=== PATIENT | male | born 1975 | race Caucasian/White ===

== ENCOUNTER 2016-08-16 14:30 | Day surgery (SDC) | payer BC ==
[~2016-08-16] VITALS: Ht 190.5 cm; Wt 47.6 kg
[~2016-08-16 14:30] MED LIST: ACET-62 PO; IBUP-1724 PO; PROP120C2 PO; RISP1TAB27 PO; RIVA15TA PO
--- OUTSIDE RECORDS SUMMARY | 2016-08-16 14:35 | XMS REPORT | Continuity of Care Document ---
Author Author [facility] Organization [facility] Address Unknown Phone Unavailable Support Name Relationship Address Phone BRANDAN MCKEON INSPECTOR OUTSIDE PRODUCTION Caregiver [address] [place] [address] Unavailable BRANDAN MCKEON INSPECTOR OUTSIDE PRODUCTION Caregiver [address] [place] [address] Unavailable HESHAM HUNT Next Of Kin [address] [place] [address] Insurance Providers Guarantor Basilio Hunt Address [address] [place] [address] Email DENIED 16 Payer [facility] Policy Number [id number] Subscriber's Name Basilio Hunt Relationship 18 Self Group Number [id number] Problems Past Problems Medical Problem Onset Date Acute superficial venous thrombosis of right lower extremity Unknown DVT (deep venous thrombosis) Unknown DVT (deep venous thrombosis) Unknown Deep vein thrombosis (DVT) of right lower extremity Unknown Dyspnea Unknown Nonspecific chest pain Unknown Shortness of breath Unknown Medications Current Home Medications Medication Dose Units Route Directions Days Qty Instructions Start Date Acetaminophen 500 Mg Tablet 1,000 Mg Oral Every 8 Hours as needed for Pain 05/30/16 Ibuprofen 200 Mg Tablet 400 Mg Oral Every 4 Hours as needed for Pain 04/13/16 Propranolol Hcl 120 Mg Cap.sa.24h 120 Mg Oral Daily 05/30/16 Risperidone 1 Mg Tablet 1 Mg Oral Daily 05/30/16 Rivaroxaban (Xarelto) 15 Mg Tablet 15 Mg Oral Twice Daily With Meals 21 Days 42 Tablet Take 1 tablet, by mouth, 2 times a day with meals. 05/29/16 Past Home Medications Medication Directions Ordered Status Amitriptyline , 05/10/08 Discontinued Hydrocodone Bit/Acetaminophen (Lortab 7.5-500 Tablet) 1 Tab Tablet, 1 Tab Oral As Needed 03/23/08 Discontinued Social History Social History Problem Response Recorded Date/Time Onset Date Status Hx Substance Use No 05/30/2016 7:50pm Not Applicable Not Applicable Hx Alcohol Use No 05/30/2016 7:50pm Not Applicable Not Applicable Hospital Discharge Instructions Current inpatient/outpatient. Discharge instructions are currently unavailable. Plan of Care Current inpatient/outpatient. The plan of care is currently unavailable Functional Status No functional status results. Allergies, Adverse Reactions, Alerts Allergen Type Severity Reaction Status Last Updated Iodinated Contrast Media - Oral and Allergy Mild ITCH, RASH Active Immunizations Query Response on File Recorded Date/Time Hx Tetanus, Diptheria, Pertussis Yes 09/13/10 12:22am Hx Tetanus Diptheria No 05/30/16 7:50pm Hx Tetanus, Diptheria, Pertussis Yes 09/13/10 12:22am Hx Tetanus Toxoid Vaccination No 05/30/16 7:50pm DTaP Vaccine History UNK 05/30/16 7:50pm Influenza Vaccine Hx NOT REC'D 05/30/16 7:50pm Tdap Vaccine Hx UTD PER PT 05/30/16 7:50pm Vital Signs Acute Vital Signs Vital Response Date/Time Temperature (Fahrenheit) 98.4 deg F (96.8 - 99.1) 05/30/2016 10:28pm Temperature (Calculated Celsius) 36.90264 degrees C (36.0 - 37.3) 05/30/2016 10:28pm Pulse Rate (adult) 48 bpm (60 - 100) 05/30/2016 10:28pm Respiratory Rate 16 breaths/min (10 - 20) 05/30/2016 10:28pm O2 Sat by Pulse Oximetry 96 % (90 - 100) 05/30/2016 10:28pm Blood Pressure 129/61 mm Hg 05/30/2016 10:28pm Height (Feet) 6 feet 05/30/2016 6:56pm Height (Inches) 3.00 inches 05/30/2016 6:56pm Weight (Kilograms) 103.600 kg 05/30/2016 6:56pm Body Mass Index (BMI) 28.0 05/30/2016 6:56pm Results Laboratory Results Test Name Result Units Flags Reference Collection Date/Time Result Date/ Time Comments White Blood Count 10.2 T/MM3 4.5-11.0 05/30/2016 7:45pm 05/30/2016 7: 56pm Red Blood Count 5.06 M/MM3 4.50-5.90 05/30/2016 7:45pm 05/30/2016 7: 56pm Hemoglobin 15.4 GM/DL 13.5-17.5 05/30/2016 7:45pm 05/30/2016 7:56pm Hematocrit 45.9 % 41-53 05/30/2016 7:45pm 05/30/2016 7:56pm Mean Corpuscular Volume 90.7 UM3 80-100 05/30/2016 7:45pm 05/30/2016 7: 56pm Mean Corpuscular Hemoglobin 30.4 UUG 26-34 05/30/2016 7:45pm 2016 7:56pm Mean Corpuscular Hemoglobin Concent 33.6 GM/DL 31-37 05/30/2016 7:45pm 05/30/2016 7:56pm RDW Standard Deviation 41.6 FL 36.9-50.2 05/30/2016 7:45pm 05/30/2016 7 :56pm Platelet Count 174 T/MM3 130-400 05/30/2016 7:45pm 05/30/2016 7:56pm Mean Platelet Volume 11.1 UM3 9.4-12.4 05/30/2016 7:45pm 05/30/2016 7: 56pm Neutrophils (%) (Auto) 55.8 % 33-66 05/30/2016 7:45pm 05/30/2016 7: 56pm Lymphocytes (%) (Auto) 34.3 % 23-45 05/30/2016 7:45pm 05/30/2016 7: 56pm Monocytes (%) (Auto) 5.6 % 0-9.0 05/30/2016 7:45pm 05/30/2016 7:56pm Eosinophils (%) (Auto) 3.8 % 0-4 05/30/2016 7:45pm 05/30/2016 7:56pm Basophils (%) (Auto) 0.4 % 0-2 05/30/2016 7:45pm 05/30/2016 7:56pm Immature Granulocyte % (Auto) 0.1 % 0.0-0.5 05/30/2016 7:45pm 2016 7:56pm Absolute Neutrophils (auto) 5.7 T/MM3 1.8-7.7 05/30/2016 7:45pm 2016 7:56pm Absolute Lymphocytes (auto) 3.5 T/MM3 1-4.8 05/30/2016 7:45pm 2016 7:56pm Absolute Monocytes (auto) 0.6 T/MM3 0-0.8 05/30/2016 7:45pm 05/30/2016 7:56pm Absolute Eosinophils (auto) 0.4 T/MM3 0-0.5 05/30/2016 7:45pm 2016 7:56pm Absolute Basophils (auto) 0.0 T/MM3 0-0.2 05/30/2016 7:45pm 05/30/2016 7:56pm Absolute Immature Granulocyte (auto 0.01 T/MM3 0.00-0.03 05/30/2016 7: 45pm 05/30/2016 7:56pm Icterus Index < 2 0-7 05/30/2016 7:45pm 05/30/2016 8:06pm Chemistry Specimen Hemolysis < 15 0-25 05/30/2016 7:45pm 05/30/2016 8 :06pm 0-25: Specimen Exhibited No Hemolysis. Turbidity < 20 0-20 05/30/2016 7:45pm 05/30/2016 8:06pm Sodium Level 140 MEQ/L 134-144 05/30/2016 7:45pm 05/30/2016 8:06pm Potassium Level 4.1 MEQ/L 3.6-5 05/30/2016 7:45pm 05/30/2016 8:06pm Chloride Level 105 MEQ/L 98-107 05/30/2016 7:45pm 05/30/2016 8:06pm Carbon Dioxide Level 27 MEQ/L 22-30 05/30/2016 7:45pm 05/30/2016 8: 06pm Anion Gap 8 MEQ/L 5-15 05/30/2016 7:45pm 05/30/2016 8:06pm Blood Urea Nitrogen 9.0 MG/DL 9-05/30/2016 7:45pm 05/30/2016 8:06pm Creatinine 0.9 MG/DL 0.8-1.5 05/30/2016 7:45pm 05/30/2016 8:06pm BUN/Creatinine Ratio 10 RATIO 6-05/30/2016 7:45pm 05/30/2016 8:06pm Glomerular Filtration Rate Calc 93 05/30/2016 7:45pm 05/30/2016 8: 06pm Glucose Level 90 MG/DL 75-110 05/30/2016 7:45pm 05/30/2016 8:06pm Calculated Osmolality 268 MOSM/KG 261-280 05/30/2016 7:45pm 05/30/2016 8:06pm Calcium Level 9.2 MG/DL 8.4-10.2 05/30/2016 7:45pm 05/30/2016 8:06pm Total Bilirubin 0.70 MG/DL 0.20-1.30 05/30/2016 7:45pm 05/30/2016 8: 06pm Alkaline Phosphatase 78 U/L 38-126 05/30/2016 7:45pm 05/30/2016 8:06pm Total Protein 7.1 G/DL 6.3-8.2 05/30/2016 7:45pm 05/30/2016 8:06pm Albumin 4.0 G/DL 3.5-5.0 05/30/2016 7:45pm 05/30/2016 8:06pm Globulin 3.1 G/DL 2.4-3.6 05/30/2016 7:45pm 05/30/2016 8:06pm Albumin/Globulin Ratio 1.3 RATIO 1.1-2.2 05/30/2016 7:45pm 05/30/2016 8 :06pm Aspartate Amino Transf (AST/SGOT) 24 U/L 17-59 05/30/2016 7:45pm 2016 8:06pm Alanine Aminotransferase (ALT/SGPT) 27 U/L 21-72 05/30/2016 7:45pm 8:06pm Plasma Lactate 1.0 MMOL/L 0.6-2.2 05/30/2016 7:45pm 05/30/2016 8:04pm Procedures Procedure Status Date Provider(s) Extremity study Completed 04/13/16 Emergency dept visit Completed 04/13/16 Encounters Encounter Location Arrival/Admit Date Discharge/Depart Date Attending Provider Registered Clinic [facility] 05/31/16 6:42am BRANDAN MCKEON APRN Departed Emergency Room [facility] 05/30/16 6:46pm 05/30/16 10: 28pm CAROLE JUNE MD Departed Emergency Room [facility] 05/30/16 5:34pm 05/30/16 6: 32pm JOSR BALBUENA APRN Departed Emergency Room [facility] 05/29/16 7:15am 05/29/16 9: 40am LORRAINE SALINAS MD Departed Emergency Room [facility] 04/13/16 8:42pm 04/13/16 11: 10pm LORRAINE SALINAS MD
--- NOTE | 2016-08-16 14:40 | ERPDOC ---
Departure Disposition Decision Date: August 16, 2016 Disposition Decision Time: 16:09 Disposition: 01 DISCHARGED HOME, SELF-CARE Impression Impression Impression: Primary Impression: Chest pain, rule out acute myocardial infarction Severity: Moderate Condition: Stable Seen By: Physician only Referrals: BRANDAN MCKEON APRN (Family) Problems/Meds/Labs Reviewed?: Yes Medications reviewed and manag: Yes Follow up care ordered?: Yes Mental Status: Alert, Oriented Scripts Atorvastatin Calcium (Atorvastatin Calcium) 20 Mg Tablet 1 TAB PO HS for 30 Days, #30 TAB 2 Refills Prov: ALEXYS ALSTON MD 08/17/16 HPI - Chest Pain General Stated Complaint: CHEST PAIN Time Seen by Provider: 14:34 Source: patient, RN/MD Exam Limitations: no limitations HPI - Chest Pain Initial Comments Patient is a 40-year-old male, smoker, history of hypertension, family history of brother needing a CABG at the age of 43. Patient presents the ER for evaluation of chest pain intermittent associated with exertion over the last 3 days with radiation to his right arm. This is waxed and waned, has been as high as 9/10, today was 5/10. Patient went to his cardiology office, was given nitroglycerin aspirin there with minimal relief so patient was referred to the ER no specific EKG changes. On arrival patient is currently complaining of 5/ 10 anterior chest pain with radiation to the right arm no nausea and no diaphoresis Occurred At: home Onset/Timing: Gradual, Getting worse Duration: other (several days) Pain/Severity Scale: Now: 5/10, Worst: 10/10 Location: substernal Chest Pain Radiation: arms Nitro Today/Relief: 0.4 mg x 3, provided by EMS (provided by cardiology), mild relief Aspirin Treatment Today: 81 mg x 4, provided at home Allergies: Coded Allergies: Iodinated Contrast Media - Oral and (Verified Allergy, Mild, ITCH, RASH, ) Past History Past Medical History Metabolic: hypertension, DENIES: diabetes, hypercholesterolemia, hypothyroidism Cardiac: DENIES: CAD, CHF, angina Respiratory: DENIES: COPD, asthma Musculoskeletal: back pain, neck pain Hematologic: DVT Surgical History Denies Surgeries Cardiac: DENIES: cardiac bypass, cardiac cath, vascular bypass Family History Family PMH: FOUND: other Vaccines Hx Tetanus Diptheria: No Hx Tetanus, Diptheria, Pertuss: Yes Social History Smoking Status: Current every day smoker Substance Use Type: does not use, former substance user Alcohol Intake: none Review of Systems Constitutional Constitutional: DENIES: appetite decrease, chills, dizziness, fever, weakness ENMT Sinuses: DENIES: congestion, rhinorrhea Cardiovascular Cardiac: chest pain, DENIES: dyspnea on exertion Pulmonary Respiratory: DENIES: cough, dyspnea, pleuritic chest pain, sputum, tachypnea GI Upper Abdomen: DENIES: nausea, pain, vomiting Lower Abdomen: DENIES: constipation, diarrhea, pain General: DENIES: frequency, urgency Integumentary Skin: DENIES: color change, itching, rash Neurological General: DENIES: change in strength, headache, numbness Physical Exam General General Nourishment: well nourished, well developed General Body Habitus: well groomed Vitals and Pain First Documented Vital Signs Date Time Temp Pulse Resp B/P Pulse Ox O2 Delivery O2 Flow Rate FiO2 08/16/16 14:32 98.4 76 16 123/64 96 Room Air Weight: Kilograms: Height (feet): 6 Height (inches): 3.00 Triage Pain Scale: RN VS reviewed by Provider: Yes Eyes (brief) Eyes Brief: found: EOMI ENMT (brief) ENMT Brief: FOUND: mucosa moist, normal dentition, NOT FOUND: nasal erythema, pharnyx erythema, tonsillar deviation Neck (brief) Neck: NOT FOUND: adenopathy, spasm, tenderness Respiratory (brief) Respiratory: FOUND: clear all ball, equal bilaterally, NOT FOUND: rales, wheezes Cardiovascular (brief) Cardiac: FOUND: regular rate, regular rhythm Capillary Refill: <2 sec Abdomen (brief) Abdominal Brief: FOUND: bowel normo active x4, soft, NOT FOUND: distended, tender Lymphatic (brief) Lymphatic Brief: NOT FOUND: adenopathy Musculoskeletal (brief) Musculoskeletal Brief: NOT FOUND: spasm, tenderness Integumentary (brief) Integumentary Brief: FOUND: dry, pink, warm, NOT FOUND: rash Neurologic (brief) Neurological Brief: FOUND: CN w/o gross def to obs, motor-no gross deficits, sensory-no gross deficits Psychiatric (brief) Psychiatric Brief: FOUND: alert, oriented Differential Diagnoses Considering: Acute MA, Anxiety/Panic, Angina, Aortic Dissection, Brugada Syndrome, CHF, Costochondritis, Esophageal Spasm, GERD, Hypertensive Emergency, Hyperventilation, Pancreatitis, Pericarditis, Pleurisy, Pneumothorax, Pneumonia , Pulmonary Edema Progress Results/Orders Orders Procedure Category Date Status Time EKG EKG 08/16/16 Logged 14:31 Cbc W/Auto LAB 08/16/16 Complete Diff-Reflex Manual 14:34 Probnp LAB 08/16/16 Complete 14:34 Troponin I W LAB 08/16/16 Complete Hemolysis Index 14:34 D-Dimer LAB 08/16/16 Complete 14:34 Tsh - Thyroid Stim LAB 08/16/16 Complete Hormone 14:34 Magnesium LAB 08/16/16 Complete 14:34 Chest 1 View RAD 08/16/16 Resulted 14:34 Iv Lock (Ed Only) EDM 08/16/16 Transmitted 14:34 Nitroglycerin PHA 08/16/16 Complete (Nitrostat) 14:45 Cmp - Comprehensive LAB 08/16/16 Complete Metabolic 15:01 Place In Facility: ED ADM 08/16/16 Transmitted 16:02 Measure Vital Signs [place]IL[place] 08/16/16 In Process 16:02 Up In Room With Assist [place] 08/16/16 In Process 16:02 Clear Liquid Diet DIET 08/16/16 Transmitted Dinner Iv Lock (Nursing) [place] 08/16/16 In Process 16:02 Prn Orders (Adult) PHA 08/16/16 In Process (May Use Prn Orders) 16:15 Troponin I W LAB 08/16/16 Logged Hemolysis Index 20:40 Troponin I W LAB 08/17/16 Verified Hemolysis Index 02:40 Troponin I W LAB 08/17/16 Verified Hemolysis Index 08:40 Nitroglycerin PHA 08/16/16 In Process (Nitrostat) 16:15 Npo After Midnight [place]NA 08/16/16 In Process 16:02 Npo: Nothing By Mouth DIET 08/17/16 Transmitted Breakfast Telemetry [place] 08/16/16 In Process 16:02 Lab Results Laboratory Tests Test 08/16/16 14:43 White Blood Count 10.7T/MM3 Red Blood Count 4.97M/MM3 Hemoglobin 15.2GM/DL Hematocrit 45.6% Mean Corpuscular Volume 91.8UM3 Mean Corpuscular Hemoglobin 30.6UUG Mean Corpuscular Hemoglobin Concent 33.3GM/DL RDW Standard Deviation 45.4FL Platelet Count 188T/MM3 Mean Platelet Volume 10.4UM3 Immature Granulocyte % (Auto) 0.2% Neutrophils (%) (Auto) 60.8% Lymphocytes (%) (Auto) 29.5% Monocytes (%) (Auto) 5.7% Eosinophils (%) (Auto) 3.2% Basophils (%) (Auto) 0.6% Absolute Immature Granulocyte (auto 0.02T/MM3 Absolute Neutrophils (auto) 6.5T/MM3 Absolute Lymphocytes (auto) 3.2T/MM3 Absolute Monocytes (auto) 0.6T/MM3 Absolute Eosinophils (auto) 0.3T/MM3 Absolute Basophils (auto) 0.1T/MM3 D-Dimer 154NG/ML Turbidity < 20 Sodium Level 147MEQ/L Potassium Level 4.0MEQ/L Chloride Level 105MEQ/L Carbon Dioxide Level 29MEQ/L Anion Gap 13MEQ/L Blood Urea Nitrogen 11.0MG/DL Creatinine 1.0MG/DL Glomerular Filtration Rate Calc 83 BUN/Creatinine Ratio 11RATIO Glucose Level 85MG/DL Calculated Osmolality 280MOSM/KG Calcium Level 9.5MG/DL Magnesium Level 1.9MG/DL Total Bilirubin 0.70MG/DL Icterus Index < 2 Aspartate Amino Transf (AST/SGOT) 28U/L Alanine Aminotransferase (ALT/SGPT) 35U/L Alkaline Phosphatase 73U/L Troponin I < 0.012ng/ml [id number] Natriuretic Peptide 61PG/ML Total Protein 7.2G/DL Albumin 4.1G/DL Globulin 3.1G/DL Albumin/Globulin Ratio 1.3RATIO Thyroid Stimulating Hormone (TSH) 1.39MIU/L Chemistry Specimen Hemolysis < 15 Medications Current ED Medications Nitroglycerin (Nitrostat) 0.4 mg Q5MIN PRN SL CHEST PAIN Last administered on t 15:02; Start 08/16/16 at 14:45; Stop 08/16/16 at 15:02; Status DC Miscellaneous Medication (May use PRN orders) PRN PRN MC ; Start 08/16/16 at 16 :15 Nitroglycerin (Nitrostat) 0.4 mg Q5MIN PRN SL CHEST TIGHTNESS; Start 08/16/16 at 16:15 Progress Progress Patient repeat nitroglycerin 3 is now currently chest pain-free, laboratories are currently noncontributory did discuss case with Dr. Alston, he will admit patient observation status at this time for chest pain rule out MA EKG EKG : Rate: 60-100 Rhythm: sinus [place]: normal QRS: normal Intervals: normal ST/T: non-specific changes Interpreted by: signing physician Xray Xray : Xray: CXR Portable Interpretation: Normal, Interpreted by LORRAINE Montes MD August 16, 2016 14:40
[2016-08-16] MEDS: NITROGLYCERIN 0.4 MG SUBLINGUAL TABLET SL PRN ×3 (14:44→15:02)
--- NOTE | 2016-08-16 14:44 | NUR ---
CP PATIENT REPORTS CP 08/23
[2016-08-16 14:48] LABS: BASOPHILS # (AUTO) 0.1 T/MM3 (0-0.2); BASOPHILS % (AUTO) 0.6 % (0-2); EOSINOPHILS # (AUTO) 0.3 T/MM3 (0-0.5); EOSINOPHILS % (AUTO) 3.2 % (0-4); HCT - HEMATOCRIT 45.6 % (41-53); HGB - HEMOGLOBIN 15.2 GM/DL (13.5-17.5); IMMATURE GRANULOCYTE # (AUTO) 0.02 T/MM3 (0.00-0.03); IMMATURE GRANULOCYTE % (AUTO) 0.2 % (0.0-0.5); LYMPHOCYTES # (AUTO) 3.2 T/MM3 (1-4.8); LYMPHOCYTES % (AUTO) 29.5 % (23-45); MEAN CORPUSCULAR HGB 30.6 UUG (26-34); MEAN CORPUSCULAR HGB CONC(MCHC 33.3 GM/DL (31-37); MEAN CORPUSCULAR VOLUME 91.8 UM3 (80-100); MEAN PLATELET VOLUME 10.4 UM3 (9.4-12.4); MONOCYTES # (AUTO) 0.6 T/MM3 (0-0.8); MONOCYTES % (AUTO) 5.7 % (0-9.0); NEUTROPHILS #(AUTO)-ABSOLUTE 6.5 T/MM3 (1.8-7.7); NEUTROPHILS % (AUTO) 60.8 % (33-66); RED BLOOD COUNT 4.97 M/MM3 (4.50-5.90); WBC - WHITE BLOOD COUNT 10.7 T/MM3 (4.5-11.0)
--- NOTE | 2016-08-16 14:48 | NUR ---
RADIOLOGY RADIOLOGY AT BEDSIDE FOR PORTABLE CXR
--- NOTE | 2016-08-16 14:51 | NUR ---
CP PATIENT REPORTS CP DECREASED TO 3/10
[2016-08-16 14:57] LABS: MAGNESIUM 1.9 MG/DL (1.6-2.3)
[2016-08-16] MEDS ORDERED: PROP80CA2 PO (14:59)
[2016-08-16] MEDS ORDERED: RIVA15TA PO (14:59)
--- NOTE | 2016-08-16 15:02 | DI ---
Indication: ITS.REASON: chest pain PROCEDURE: CHEST 1 VIEW: Encounter: Initial Comparison: None FINDINGS: The lungs are clear. There is no abnormal airspace opacity, pleural effusion or pneumothorax identified. The heart size, pulmonary vasculature and mediastinum are within normal limits. No significant skeletal abnormality is seen. IMPRESSION: No acute cardiopulmonary abnormality. .
--- NOTE | 2016-08-16 15:02 | NUR ---
CP PATIENT CONTINUES TO REPORT CP 06/23 AT THIS TIME. 3RD NITRO GIVEN PER DR SALINAS
[2016-08-16 15:10] LABS: PROBNP 61 PG/ML (0-175)
[2016-08-16 15:15] LABS: ALBUMIN 4.1 G/DL (3.5-5.0); ALBUMIN/GLOBULIN RATIO 1.3 RATIO (1.1-2.2); ALKALINE PHOSPHATASE 73 U/L (38-126); ALT (SGPT) 35 U/L (21-72); ANION GAP 13 MEQ/L (5-15); AST (SGOT) 28 U/L (17-59); BUN/CREATININE RATIO 11 RATIO (6-26); CALCIUM 9.5 MG/DL (8.4-10.2); CHLORIDE 105 MEQ/L (98-107); CO2 - CARBON DIOXIDE 29 MEQ/L (22-30); GLOMERULAR FILTRATION RATE 83; GLUCOSE 85 MG/DL (75-110); SODIUM 147 MEQ/L (134-144); TOTAL PROTEIN 7.2 G/DL (6.3-8.2)
[2016-08-16 15:28] LABS: THYROID STIM HORMONE-TSH 1.39 MIU/L (0.47-4.68)
--- NOTE | 2016-08-16 15:50 | NUR ---
UPDATE PATIENT REPORTS HE IS CHEST PAIN FREE AT THIS TIME AND WOULD LIKE TO GO HOME. DR SALINAS UPDATED.
--- NOTE | 2016-08-16 15:59 | NUR ---
PROVIDER DR SALINAS AT BEDSIDE TO DISCUSS POC
[2016-08-16] MEDS ORDERED: PRN ORDERS MC (16:15)
[2016-08-16] MEDS ORDERED: NITROGLYCERIN 0.4 MG SUBLINGUAL TABLET SL PRN ×2 (16:15→17:45)
--- NOTE | 2016-08-16 16:17 | NUR ---
REPORT REPORT GIVEN TO RODERICK MUNOZ ON SURGICAL UNIT.
--- NOTE | 2016-08-16 16:20 | NUR ---
ADMIT PATIENT ADMITTED TO ROOM 126 AT THIS TIME VIA WHEELCHAIR. PATIENT ABLE TO TRANSFER SELF TO SURGICAL UNIT BED. A/OX3. ROOM AIR. VITAL SIGNS STABLE. NO CURRENT CHEST PAIN PER PT. DENIES N/V AND SOA. BED IN THE LOWEST POSITION, CALL LIGHT WITHIN REACH, SIDE RAILS UPX2, AND BED ALARM ON. WILL CONTINUE TO MONITOR.
--- NOTE | 2016-08-16 16:20 | NUR ---
ADMIT PATIENT TAKEN BY WC TO SURGICAL ROOM 137, STABLE. BELONGINGS WITH PATIENT.
[2016-08-16 16:23] VITALS: Ht 190.5 cm; Wt 47.6 kg
[2016-08-16 16:29] VITALS: BP 127/59; PULSE 57; RESP 18; TEMP 98.1; O2SAT 98
[2016-08-16] MEDS ORDERED: ACETAMINOPHEN 500 MG TABLET PO PRN (17:45)
[2016-08-16] MEDS ORDERED: DiphenhydrAMINE 50 MG/ML INJECTION IV ONE (17:45)
[2016-08-16] MEDS ORDERED: MORPHINE SULFATE 10 MG SYRINGE IV PRN (17:45)
--- NOTE | 2016-08-16 17:56 | PNPDOC ---
Subjective Date DATE: 08/16/16 TIME: 17:46 Objective Vital Signs Vital signs Vital Signs 08/16/16 08/16/16 08/16/16 08/16/16 14:32 14:45 14:52 15:00 Temp 98.4 Pulse 76 66 70 Resp 16 30 29 B/P 123/64 116/61 114/59 114/59 Pulse Ox 96 96 94 O2 Delivery Room Air Room Air Room Air 08/16/16 08/16/16 08/16/16 08/16/16 15:15 15:30 15:45 16:00 Pulse 63 58 57 66 Resp 31 30 31 31 B/P 110/59 113/61 106/61 119/70 Pulse Ox 95 96 96 97 O2 Delivery Room Air Room Air Room Air Room Air 08/16/16 08/16/16 16:20 16:29 Temp 98.4 98.1 Pulse 66 57 Resp 31 18 B/P 119/70 127/59 Pulse Ox 97 98 O2 Delivery Room Air Room Air Telemetry Rhythm: Sinus Rhythm Height (Feet): 6 Height (Inches): 3.00 Weight (Kilograms): 99.900 Laboratory Laboratory Laboratory Tests 08/16/16 14:43 Laboratory Tests 08/16/16 14:43 ALEXYS HILTON MD August 16, 2016 17:54 Laboratory Laboratory Laboratory Tests 08/16/16 14:43 Laboratory Tests 08/16/16 14:43 ALEXYS HILTON MD August 16, 2016 17:54
--- NOTE | 2016-08-16 18:11 | HPPDOC ---
HPI - Adult Date DATE: 08/16/16 TIME: 17:56 General Chief Complaint: cp History of Present Illness 40 yo wm w/o prior known cad ,presnetd to our office in consultation for Cp. This started sunday nog as he was getting ready to go to bed and lasted for abou5-10 min. descibed asd a tightness felt like a pulled muscle. it radiated towaerd R shoulder and was associated with numbness and tingling r hand and fingers. no associated dyspena nausaea or diapheoresis. pain went on and off for 12 hrs with recurrence over the following days witha ctovty like hustleing around and imprioved with rest. he had Cp thisn morning for less than 1/2 hr while breaking down parts of his truck at work wgich uncluded carrying heavy parts . cp resolved only to come back as we were getting ready to see hime in the office so he received ASA 324 mg and NTGx1 and sent to ED . additional NTG x3 rendered him cp free. EKG trop and CXr Ddimer were unremarkable. nio more cp sicne admission. He susually does physical work and noticed some chronic and vague fatigue. walked 8 blocks with his 3 wks ago w/o problems. Past Medical History Past Medical History Patient's Medical History: (1) VTE (venous thromboembolism) Permanent Comment: order added per radiologist report Last Edited By: Sharonda Camargo on May 31, 2016 14:33 copd DVT 3 mo ago migraine PTSD geenralized Anxiety d/o kidney tune removal 2003 Rx pain med addiction clean x 5yrs Current Medications Home Meds Reported Medications Rivaroxaban (Xarelto) 15 Mg Tablet, 15 MG PO DAILY, TAB Take 1 tablet, by mouth, daily with evening meal. 08/16/16 Propranolol HCl (Propranolol HCl) 80 Mg Cap.sa.24h, 1 CAP PO DAILY, #90 CAP 1 Refill 08/16/16 Acetaminophen (Acetaminophen) 500 Mg Tablet, 1000 MG PO Q8H Y for PAIN 05/30/16 Risperidone (Risperidone) 1 Mg Tablet, 1 MG PO DAILY 05/30/16 Ibuprofen (Ibuprofen) 200 Mg Tablet, 400 MG PO Q4H Y for PAIN 04/13/16 Allergies: Coded Allergies: Iodinated Contrast Media - Oral and (Verified Allergy, Mild, ITCH, RASH, ) Family History Family History: CABG in brother his early 40's, 2nd brother also has CAD + stroke ,dad herat dz, also FHx for Ca. Social History Smoking Status: Current every day smoker (1.5 PPD.denies alcohol ) Substance Use Type: does not use, former substance user Alcohol Intake: none Advance Directives: No DPOA for Healthcare Only Review of Systems Constitutional: REPORTS: anorexia, appetite decrease, dizziness (BP Rx being lowered by PCP due to wt loss), fatigue ( at work), weight loss (50 LBS over 3 months .PCP aware . says he had deceraesed appetite ,but has improved over the last month but has't put wt back on. says he feels more energetic. denioes depression.), DENIES: night sweats, syncope Eyes General: DENIES: burning, itching Lids/Accessories: DENIES: swelling Vision: DENIES: double vision, vision changes ENMT Hearing: DENIES: hearing loss Balance: DENIES: ataxia, falling to one side Sinuses: NOT FOUND: rhinorrhea Nose: NOT FOUND: nosebleeds Mouth/Throat: DENIES: loose teeth, masses, ulcers Cardiovascular chest pain, paroxysmal nocturnal dysp (per . also snoring. no apnea observed), DENIES: dyspnea on exertion Rhythm/Rate: DENIES: palpitations Vascular: DENIES: intermittent claudication, unilateral swelling Pulmonary Respiratory: DENIES: dyspnea, pleuritic chest pain, pneumonia hx, sputum GI Upper Abdomen: DENIES: heartburn/indigestion, hematemesis, pain, vomiting Lower Abdomen: constipation (mild ), DENIES: blood in stool, melena General: DENIES: burning, cloudy urine, hematuria Musculoskeletal General: DENIES: cramps, joint pain, joint swelling, weakness Integumentary Skin: DENIES: rash Neurological General: headache (mild), DENIES: aphasia, ataxia, blackouts, fainting, memory disturbances, seizures, syncope, weakness Psychiatric Psychiatric: anxiety, nervousness, DENIES: depression, memory impairment Endocrine heat/cold intolerance (feeling more cold easily ) Allergic/Immunological allergic reactions (rash with IVP dye) Physical Exam General General Nourishment: well nourished, well developed, apparent age Vital Signs Vital Signs Date Time Temp Pulse Resp B/P Pulse Ox O2 Delivery O2 Flow Rate FiO2 08/16/16 16:29 98.1 57 18 127/59 98 Room Air Height (Feet): 6 Height (Inches): 3.00 Telemetry Rhythm: Sinus Rhythm Eyes Brief: FOUND: EOMI, PERRL, NOT FOUND: scleral icterus, trauma ENMT Brief: FOUND: mucosa moist Neck Brief: NOT FOUND: JVD, adenopathy, carotid bruits, thyromegaly Respiratory Brief: FOUND: clear all ball, equal bilaterally, symmetrical, NOT FOUND: rales, wheezes Cardiovascular (brief) Cardiac Brief: FOUND: gallop (s4), murmur (faint 1-2 /6 diastolic M along LLSB ), regular rate, regular rhythm, NOT FOUND: pedal edema, peripheral edema, rub Abdomen (brief) Abdominal Brief: FOUND: BS normo active x4, soft, NOT FOUND: distended, hepatosplenomegaly, pulsatile mass, tender (brief) Male Brief: NOT FOUND: deformity Lymphatic (brief) Lymphatic Brief: NOT FOUND: adenopathy, lymphedema Musculoskeletal (brief) Musculoskeletal Brief: FOUND: extremities move equally, NOT FOUND: deformity, loss of motion Integumentary (brief) Integumentary Brief: FOUND: dry, pink, warm Neurologic (brief) Neurological Brief: FOUND: cranial 2-12 intact, motor, NOT FOUND: facial droop , ptosis Neurologic RN Documented GCS Eye Opening: Verbal: Motor: Total: Psychiatric (brief) FOUND: alert, attentive, normal affect, oriented Laboratory Laboratory Tests Test 08/16/16 14:43 White Blood Count 10.7T/MM3 Red Blood Count 4.97M/MM3 Hemoglobin 15.2GM/DL Hematocrit 45.6% Mean Corpuscular Volume 91.8UM3 Mean Corpuscular Hemoglobin 30.6UUG Mean Corpuscular Hemoglobin Concent 33.3GM/DL RDW Standard Deviation 45.4FL Platelet Count 188T/MM3 Mean Platelet Volume 10.4UM3 Immature Granulocyte % (Auto) 0.2% Neutrophils (%) (Auto) 60.8% Lymphocytes (%) (Auto) 29.5% Monocytes (%) (Auto) 5.7% Eosinophils (%) (Auto) 3.2% Basophils (%) (Auto) 0.6% Absolute Immature Granulocyte (auto 0.02T/MM3 Absolute Neutrophils (auto) 6.5T/MM3 Absolute Lymphocytes (auto) 3.2T/MM3 Absolute Monocytes (auto) 0.6T/MM3 Absolute Eosinophils (auto) 0.3T/MM3 Absolute Basophils (auto) 0.1T/MM3 D-Dimer 154NG/ML Turbidity < 20 Sodium Level 147MEQ/L Potassium Level 4.0MEQ/L Chloride Level 105MEQ/L Carbon Dioxide Level 29MEQ/L Anion Gap 13MEQ/L Blood Urea Nitrogen 11.0MG/DL Creatinine 1.0MG/DL Glomerular Filtration Rate Calc 83 BUN/Creatinine Ratio 11RATIO Glucose Level 85MG/DL Calculated Osmolality 280MOSM/KG Calcium Level 9.5MG/DL Magnesium Level 1.9MG/DL Total Bilirubin 0.70MG/DL Icterus Index < 2 Aspartate Amino Transf (AST/SGOT) 28U/L Alanine Aminotransferase (ALT/SGPT) 35U/L Alkaline Phosphatase 73U/L Troponin I < 0.012ng/ml GC-Sba-X-Type Natriuretic Peptide 61PG/ML Total Protein 7.2G/DL Albumin 4.1G/DL Globulin 3.1G/DL Albumin/Globulin Ratio 1.3RATIO Thyroid Stimulating Hormone (TSH) 1.39MIU/L Chemistry Specimen Hemolysis < 15 EKG NSR no acute changhes Assessment & Plan Code Status Full Code Hospital Course Summary Disclaimer The hospital course summary below is not to be considered part of the above Progress Note. Hospital Course Summary cp c/w unstable angina smoker HTN +FHX cad h/o DVT AI murm,ur wt loss chronic outpt adm r/o PA echo regarding m and CP watch for fever NTG paste BB ASA check lipids smoking cessation counseling holding Xarelto SQ Heparin HC tomorrow dw pt indication alterantivwes risks and benefits and agree to proceed. see pre cath orders with premed. for dye allergy f/u w PCP re reoprtegd wt loss (chronic) ALEXYS HILTON MD August 16, 2016 17:59
[2016-08-16] MEDS: NITROGLYCERIN 2% OINTMENT 1 G PACKET TOP SCH (18:14)
--- NOTE | 2016-08-16 18:29 | NUR ---
END OF SHIFT REPORT PATIENT A/OX3. VITAL SIGNS STABLE. UP AD JEREMIAS. ROOM AIR. AFEBRILE. PT DOES NOT C/O CHEST, SOA, OR N/V. NITRO PATCH APPLIED TO LEFT UPPER CHEST. PATIENT ATE DINNER WELL. FAMILY AT BEDSIDE. NO PRNS ADMINISTERED. WILL CONTINUE TO MONITOR.
[2016-08-16] MEDS: PredniSONE 20 MG TABLET PO SCH (20:09)
[2016-08-16] MEDS: HEPARIN SUB-Q 5,000 unit/0.5ml vial SQ SCH (20:10)
[2016-08-17] VITALS (13 sets, daily range): BP systolic 116–163; BP diastolic 61–100; PULSE 56–75; RESP 11–28; TEMP 97.1–98; O2SAT 93–98
--- NOTE | 2016-08-17 | NUR ---
NITRO PASTE NITRO PASTE REMOVED ER EMAR LABEL COMMENT
--- NOTE | 2016-08-17 01:24 | NUR ---
Chart Check 24 hour chart check completed
[2016-08-17] MEDS: IBUPROFEN 200 MG TABLET PO PRN ×2 (02:42→11:46)
[2016-08-17 03:30] LABS: RISK FACTOR 5.7 RATIO (0-5.0)
[2016-08-17] MEDS ORDERED: NORMAL SALINE 1,000 ML IV SCH (06:00)
[2016-08-17] MEDS: NITROGLYCERIN 2% OINTMENT 1 G PACKET TOP SCH ×2 (06:08→11:46)
--- NOTE | 2016-08-17 06:28 | NUR ---
SUMMARY RESTED THROUGH PART OF THE NIGHT WITH EYES CLOSED. SPOUSE AT THE BEDSIDE THROUGH THE NIGHT. DID COMPLAIN OF A SEVERE MIGRAINE. STATES TAKES EXCEDRIN AT HOME. MEDICATED WITH MOTRIN 400MG PO. REPORTS RELIEF FROM [facility] THIS AM. UP AD JEREMIAS TO THE BATHROOM. NO FURTHER CHANGE IN ASSESSMENT. WILL CONTINUE TO MONITOR.
[2016-08-17] MEDS: PredniSONE 20 MG TABLET PO SCH ×2 (08:53→15:00)
[2016-08-17] MEDS: HEPARIN SUB-Q 5,000 unit/0.5ml vial SQ SCH (08:54)
[2016-08-17] MEDS ORDERED: ASPIRIN 81 MG CHEWABLE TABLET PO SCH (09:00)
[2016-08-17] MEDS ORDERED: RISPERIDONE 1 MG TABLET PO SCH (09:00)
[2016-08-17] MEDS ORDERED: NICOTINE 21 MG PATCH TD SCH (09:00)
[2016-08-17] MEDS ORDERED: PROPRANOLOL LA 80 MG CAPSULE PO SCH (09:00)
--- NOTE | 2016-08-17 09:17 | NUR ---
CM CM IN TO VISIT PATIENT, HE IS A&O. HAS BEEN STAYING WITH HIM, BUT SHE WAS NOT PRESENT AT THIS TIME. PATIENT PLANS TO DISCHARGE HOME, DENIES NEEDS. CM CONTACT INFORMATION PROVIDED. Addendum: 08/17/16 at 0918 by MINI PRESSLEY RN Amended: Links added.
[2016-08-17] MEDS ORDERED: IOHEXOL 350mg/ml 200ml BOTTLE ONE ×2 (13:50→14:58)
[2016-08-17] MEDS ORDERED: HEPARIN 1,000units in NS 500ml BAG IV ONE (13:50)
[2016-08-17] MEDS ORDERED: LIDOCAINE 1% (10mg/ml) 30ml SDV ONE (13:50)
--- NOTE | 2016-08-17 14:15 | NUR ---
TO [employer] PT TRANSPORTED TO [employer] [facility] AT THIS TIME VIA CART AND ACCOMPANIED BY NIK PICKENS RN. VITAL SIGNS STABLE UPON TRANSFER. PERSONAL BELONGINGS REMAIN IN ROOM. PRESENT UPON TRANSFER. INFORMED CONSENT OBTAINED. WILL CONTINUE TO MONITOR CLOSELY.
[2016-08-17] MEDS ORDERED: MIDAZOLAM 2mg/2ml INJECTION ONE ×2 (14:21→14:49)
[2016-08-17] MEDS ORDERED: FENTANYL 100mcg/2ml INJECTION ONE (14:21)
[2016-08-17] MEDS ORDERED: VERAPAMIL 5mg/2ml INJECTION IV ONE (14:21)
[2016-08-17] MEDS ORDERED: NITROGLYCERIN 50mg/10ml INJECTION IV ONE (14:22)
[2016-08-17] MEDS ORDERED: DiphenhydrAMINE 50 MG/ML INJECTION ONE (14:23)
[2016-08-17] MEDS ORDERED: NORMAL SALINE 1,000 ML ONE (14:57)
[2016-08-17] MEDS ORDERED: DiphenhydrAMINE 50 MG/ML INJECTION IV ONE (15:00)
--- NOTE | 2016-08-17 15:15 | NUR ---
RETURN PT RETURNED TO ROOM 126 AT THIS TIME VIA CART. PT TRANSFERRED SELF FROM CART TO BED. VITAL SIGNS STABLE ON ROOM AIR. PRESENT IN ROOM UPON RETURN. HOB ELEVATED. BED ALARM ON. WILL CONTINUE TO MONITOR.
[2016-08-17] MEDS ORDERED: MILK OF MAGNESIA 30 ML SUSP PO PRN (15:45)
[2016-08-17] MEDS ORDERED: ONDANSETRON 4mg/2ml INJECTION IV PRN (15:45)
[2016-08-17] MEDS ORDERED: BISACODYL 5 MG E.C. TABLET PO PRN (15:45)
[2016-08-17] MEDS ORDERED: LORAZEPAM 0.5 MG TABLET PO PRN (15:45)
[2016-08-17] MEDS ORDERED: ATROPINE 1 MG/ML VIAL IV PRN (15:45)
[2016-08-17] MEDS ORDERED: MAG-AL + SIM LIQUID 30 ML UDC PO PRN (15:45)
[2016-08-17] MEDS ORDERED: LORAZEPAM 2 MG/ML INJECTION IV PRN (15:45)
[2016-08-17] MEDS ORDERED: NITROGLYCERIN 0.4 MG SUBLINGUAL TABLET SL PRN (15:45)
[2016-08-17] MEDS ORDERED: PROMETHAZINE 25 MG INJECTION IV PRN (15:45)
[2016-08-17] MEDS ORDERED: HYDROCODONE/APAP 5 mg/325 mg TABLET PO PRN (15:45)
[2016-08-17] MEDS ORDERED: MORPHINE SULFATE 4 MG SYRINGE IV PRN ×2 (15:45)
[2016-08-17] MEDS ORDERED: METOCLOPRAMIDE 10mg/2ml INJECTION IV PRN (15:45)
[2016-08-17] MEDS ORDERED: ACETAMINOPHEN 325 MG TABLET PO PRN (15:45)
[2016-08-17] MEDS ORDERED: BISACODYL 10 MG SUPPOSITORY RECTALLY PRN (15:45)
[2016-08-17] MEDS ORDERED: ATOR20TA59 PO (16:13)
--- NOTE | 2016-08-17 17:25 | NUR ---
DISCHARGE PT DISCHARGED TO HOME AT THIS TIME IN THE COMPANY OF HIS . PT AMBULATED SELF TO THE ER ENTRANCE WITH THE SUPERVISION OF STAFF. NICOTINE PATCH DC'D PRIOR TO DISCHARGE. DISCHARGE INSTRUCTIONS INCLUDING DIET, ACTIVITY, MEDICATIONS, FOLLOW UP APPOINTMENT, REPORTABLE S/S AND [facility] TRANS RADIAL HEART CATH INSTRUCTIONS GIVEN AND REVIEWED WITH PATIENT. PT VERBALIZED UNDERSTANDING OF THESE INSTRUCTIONS AND HAD NO FURTHER QUESTIONS. IVL DISCONTINUED. ARMBAND REMOVED. PERSONAL BELONGINGS RETURNED. SCRIPT FOR ATORVASTATIN SENT IN ELECTRONICALLY TO [facility].
--- OUTSIDE RECORDS SUMMARY | 2016-08-18 07:33 | XMS REPORT | Continuity of Care Document ---
Author Author [facility] Organization [facility] Address Unknown Phone Unavailable Support Name Relationship Address Phone ALEXYS ALSTON MD Caregiver [address] [place] [address] [place] [id number] Unavailable ALEXYS ALSTON MD Caregiver [address] [place] [address] Unavailable BRANDAN MCKEON APRN Caregiver [address] [place] [address] Unavailable LORRAINE SALINAS MD Caregiver [address] [place] [address] [place] [address] Unavailable HESHAM HUNT Next Of Kin [address] [place] [address] Insurance Providers Guarantor Basilio Hunt Address [address] [place] [address] Email DENIED 08-16-16 Payer [facility] Policy Number [id number] Subscriber's Name Basilio Hunt Relationship 18 Self Group Number [id number] Advance Directives Directive Response Recorded Date/Time Ordered Resuscitation Status Full Code 08/16/16 4:07pm Resuscitation Documents on File No 08/16/16 4:25pm DPOA for Healthcare Only No 08/16/16 6:11pm Living Will No 08/16/16 4:25pm Problems Active Problems Medical Problem Onset Date Status VTE (venous thromboembolism) Unknown Past Problems Medical Problem Onset Date Acute superficial venous thrombosis of right lower extremity Unknown Chest pain, rule out acute myocardial infarction Unknown DVT (deep venous thrombosis) Unknown DVT (deep venous thrombosis) Unknown Deep vein thrombosis (DVT) of right lower extremity Unknown Dyspnea Unknown Nonspecific chest pain Unknown Shortness of breath Unknown Medications Current Home Medications Medication Dose Units Route Directions Days Qty Instructions Start Date Acetaminophen 500 Mg Tablet 1,000 Mg Oral Every 8 Hours as needed for Pain 05/30/16 Atorvastatin Calcium 20 Mg Tablet 1 Tab Oral Bedtime 30 Days 30 Tablet 08/17/16 Ibuprofen 200 Mg Tablet 400 Mg Oral Every 4 Hours as needed for Pain 04/13/16 Propranolol Hcl 80 Mg Cap.sa.24h 1 Cap Oral Daily 90 Capsule Risperidone 1 Mg Tablet 1 Mg Oral Daily 05/30/16 Rivaroxaban (Xarelto) 15 Mg Tablet 15 Mg Oral Daily Take 1 tablet, by mouth, daily with evening meal. 08/16/16 Past Home Medications Medication Directions Ordered Status Amitriptyline , 05/10/08 Discontinued Hydrocodone Bit/Acetaminophen (Lortab 7.5-500 Tablet) 1 Tab Tablet, 1 Tab Oral As Needed 03/23/08 Discontinued Social History Social History Problem Response Recorded Date/Time Onset Date Status Reason for Hospitalization CHEST PAIN RULE OUT MYOCARDIAL INFARCTION 2016 4:35pm Not Applicable Not Applicable Chewing Tobacco Status No 08/16/2016 2:45pm Not Applicable Not Applicable Hx Substance Use No 08/16/2016 2:45pm Not Applicable Not Applicable Hx Alcohol Use No 08/16/2016 2:45pm Not Applicable Not Applicable Has the pt used tobacco in the last 12 months Yes 08/16/2016 4:26pm Not Applicable Not Applicable Query Response Start Date Stop Date Smoking Status Current every day smoker Hospital Discharge Instructions Instructions: Care Instructions: I was in the hospital because (patient own words): PATIENT STATES, "CAUSE THEY PUT ME IN HERE" Discharge Diet: heart healthy Discharge Activity: less than 1 LB R hand x 1 wk avoid strnuous activity R hand/wrist x 2 wks Follow Up Appointments: Follow up with Dr. Alston in 2-4 weeks. Please call to set up appointmnet. Follow up with primary care physician in 1 week. Pending Lab / Results: No Pending Lab Expected Signs/Symptoms: mild disconfortt ar wrist Notify Physician If: severe pain persistent ,swelling or discharge During Business Hours:: Please call the physician's office at After Business Hours:: Please call [phone] and have the white sugar pan tank operator page the physician. Pain Management/Treatment: tyelonol 650 mg every 6 hrs as needed Pain Scale Utilized to Educate Patient: 0-10 Pain Scale Wound/Incision Care: open to air Condition at time of discharge: Good Plan of Care Discharge Date 08/17/16 5:25pm Disposition 01 DISCHARGED HOME, SELF-CARE Instructions/Education Provided [facility] [place] Rad Prescriptions See Medication Section Care Plan and Goals See Discharge Instructions Section Functional Status Query Response Date Recorded Mobility Status Ambulatory August 16, 2016 4:29pm Assistive Devices None August 16, 2016 4:29pm Activity Limitations None August 16, 2016 4:29pm Feeding Ability Independent August 16, 2016 4:29pm Toileting Ability Independent August 16, 2016 4:29pm Grooming Ability Independent August 16, 2016 4:29pm Dressing Ability Independent August 16, 2016 4:29pm Driving Ability Independent August 16, 2016 4:29pm Housework Ability Independent August 16, 2016 4:29pm Meal Preparation Ability Independent August 16, 2016 4:29pm Stair Climbing Ability Independent August 16, 2016 4:29pm Ability to complete ADL's impeded by No change August 16, 2016 4:29pm Cognitive/Perceptual Impairments None August 16, 2016 4:29pm Preferred Method of Learning Hands on August 16, 2016 4:29pm Allergies, Adverse Reactions, Alerts Allergen Type Severity Reaction Status Last Updated Iodinated Contrast Media - Oral and Allergy Mild ITCH, RASH Active Immunizations Query Response on File Recorded Date/Time Hx Influenza Vaccination No 08/16/16 4:26pm Hx Pneumococcal Vaccination No 08/16/16 4:26pm Hx Tetanus, Diptheria, Pertussis Yes 09/13/10 12:22am Hx Influenza Vaccination No 08/16/16 4:26pm Hx Tetanus Diptheria No 05/30/16 7:50pm Hx Tetanus, Diptheria, Pertussis Yes 09/13/10 12:22am Hx Tetanus Toxoid Vaccination No 05/30/16 7:50pm DTaP Vaccine History UNK 08/16/16 2:45pm Influenza Vaccine Hx NOT REC'D 08/16/16 2:45pm Tdap Vaccine Hx UTD PER PT 05/30/16 7:50pm Vital Signs Acute Vital Signs Vital Response Date/Time Temperature (Fahrenheit) 98.0 deg F (96.8 - 99.1) 08/17/2016 7:29am Temperature (Calculated Celsius) 36.81688 degrees C (36.0 - 37.3) 08/17/2016 7:29am Pulse Rate (adult) 69 bpm (60 - 100) 08/17/2016 5:00pm Respiratory Rate 20 breaths/min (10 - 20) 08/17/2016 5:00pm O2 Sat by Pulse Oximetry 97 % (90 - 100) 08/17/2016 5:00pm Oxygen Delivery Method Room Air 08/17/2016 5:00pm Oxygen Delivery Method Room Air 08/17/2016 7:29am Blood Pressure 163/100 mm Hg 08/17/2016 5:00pm Blood Pressure Source Automatic Cuff 08/17/2016 5:00pm Blood Pressure 163/100 mm Hg 08/17/2016 5:00pm Blood Pressure Source Automatic Cuff 08/17/2016 5:00pm Height (Feet) 6 feet 08/16/2016 6:11pm Height (Inches) 3.00 inches 08/16/2016 6:11pm Weight (Kilograms) 47.600 kg 08/17/2016 7:27am Body Mass Index (BMI) 27.5 08/16/2016 4:23pm Results Laboratory Results Test Name Result Units Flags Reference Collection Date/Time Result Date/ Time Comments Plasma Lactate 1.0 MMOL/L 0.6-2.2 05/30/2016 7:45pm 05/30/2016 8:04pm White Blood Count 10.7 T/MM3 4.5-11.0 08/16/2016 2:43pm 08/16/2016 2: 48pm Red Blood Count 4.97 M/MM3 4.50-5.90 08/16/2016 2:43pm 08/16/2016 2: 48pm Hemoglobin 15.2 GM/DL 13.5-17.5 08/16/2016 2:43pm 08/16/2016 2:48pm Hematocrit 45.6 % 41-53 08/16/2016 2:43pm 08/16/2016 2:48pm Mean Corpuscular Volume 91.8 UM3 80-100 08/16/2016 2:43pm 08/16/2016 2: 48pm Mean Corpuscular Hemoglobin 30.6 UUG 26-34 08/16/2016 2:43pm 2016 2:48pm Mean Corpuscular Hemoglobin Concent 33.3 GM/DL 31-37 08/16/2016 2:43pm 08/16/2016 2:48pm RDW Standard Deviation 45.4 FL 36.9-50.2 08/16/2016 2:43pm 08/16/2016 2 :48pm Platelet Count 188 T/MM3 130-400 08/16/2016 2:43pm 08/16/2016 2:48pm Mean Platelet Volume 10.4 UM3 9.4-12.4 08/16/2016 2:43pm 08/16/2016 2: 48pm Neutrophils (%) (Auto) 60.8 % 33-66 08/16/2016 2:43pm 08/16/2016 2: 48pm Lymphocytes (%) (Auto) 29.5 % 23-45 08/16/2016 2:43pm 08/16/2016 2: 48pm Monocytes (%) (Auto) 5.7 % 0-9.0 08/16/2016 2:43pm 08/16/2016 2:48pm Eosinophils (%) (Auto) 3.2 % 0-4 08/16/2016 2:43pm 08/16/2016 2:48pm Basophils (%) (Auto) 0.6 % 0-2 08/16/2016 2:43pm 08/16/2016 2:48pm Immature Granulocyte % (Auto) 0.2 % 0.0-0.5 08/16/2016 2:43pm 2016 2:48pm Absolute Neutrophils (auto) 6.5 T/MM3 1.8-7.7 08/16/2016 2:43pm 2016 2:48pm Absolute Lymphocytes (auto) 3.2 T/MM3 1-4.8 08/16/2016 2:43pm 2016 2:48pm Absolute Monocytes (auto) 0.6 T/MM3 0-0.8 08/16/2016 2:43pm 08/16/2016 2:48pm Absolute Eosinophils (auto) 0.3 T/MM3 0-0.5 08/16/2016 2:43pm 2016 2:48pm Absolute Basophils (auto) 0.1 T/MM3 0-0.2 08/16/2016 2:43pm 08/16/2016 2:48pm Absolute Immature Granulocyte (auto 0.02 T/MM3 0.00-0.03 08/16/2016 2: 43pm 08/16/2016 2:48pm D-Dimer 154 NG/ML 0-230 08/16/2016 2:43pm 08/16/2016 3:42pm <230 NG/ ML D-DU=PRESUMPTIVE NEGATIVE FOR PE OR DVT >230 NG/ML D-DU=ADDITIONAL EVAL FOR PE OR DVT RECOMMENDED Icterus Index < 2 0-7 08/16/2016 2:43pm 08/16/2016 3:15pm Chemistry Specimen Hemolysis < 15 0-25 08/17/2016 8:44am 08/17/2016 9 :24am 0-25: Specimen Exhibited No Hemolysis. Turbidity < 20 0-20 08/16/2016 2:43pm 08/16/2016 3:15pm Sodium Level 147 MEQ/L H 134-144 08/16/2016 2:43pm 08/16/2016 3:15pm Potassium Level 4.0 MEQ/L 3.6-5 08/16/2016 2:43pm 08/16/2016 3:15pm Chloride Level 105 MEQ/L 98-107 08/16/2016 2:43pm 08/16/2016 3:15pm Carbon Dioxide Level 29 MEQ/L 22-30 08/16/2016 2:43pm 08/16/2016 3: 15pm Anion Gap 13 MEQ/L 5-15 08/16/2016 2:43pm 08/16/2016 3:15pm Blood Urea Nitrogen 11.0 MG/DL 9-20 08/16/2016 2:43pm 08/16/2016 3: 15pm Creatinine 1.0 MG/DL 0.8-1.5 08/16/2016 2:43pm 08/16/2016 3:15pm BUN/Creatinine Ratio 11 RATIO 6-26 08/16/2016 2:43pm 08/16/2016 3:15pm Glomerular Filtration Rate Calc 83 08/16/2016 2:43pm 08/16/2016 3: 15pm Glucose Level 85 MG/DL 75-110 08/16/2016 2:43pm 08/16/2016 3:15pm Calculated Osmolality 280 MOSM/KG 261-280 08/16/2016 2:43pm 08/16/2016 3:15pm Calcium Level 9.5 MG/DL 8.4-10.2 08/16/2016 2:43pm 08/16/2016 3:15pm Total Bilirubin 0.70 MG/DL 0.20-1.30 08/16/2016 2:43pm 08/16/2016 3: 15pm Alkaline Phosphatase 73 U/L 38-126 08/16/2016 2:43pm 08/16/2016 3:15pm Total Protein 7.2 G/DL 6.3-8.2 08/16/2016 2:43pm 08/16/2016 3:15pm Albumin 4.1 G/DL 3.5-5.0 08/16/2016 2:43pm 08/16/2016 3:15pm Globulin 3.1 G/DL 2.4-3.6 08/16/2016 2:43pm 08/16/2016 3:15pm Albumin/Globulin Ratio 1.3 RATIO 1.1-2.2 08/16/2016 2:43pm 08/16/2016 3 :15pm Aspartate Amino Transf (AST/SGOT) 28 U/L 17-59 08/16/2016 2:43pm 2016 3:15pm Alanine Aminotransferase (ALT/SGPT) 35 U/L 21-72 08/16/2016 2:43pm 06/2016 3:15pm Cholesterol Level 188 MG/DL 132-199 08/17/2016 2:29am 08/17/2016 3: 30am Triglycerides Level 105 MG/DL 40-160 08/17/2016 2:29am 08/17/2016 3: 30am HDL Cholesterol Direct 33 MG/DL L 40-60 08/17/2016 2:29am 08/17/2016 3: 30am LDL Cholesterol, Calculated 134.0 66-159 08/17/2016 2:29am 2016 3:30am VLDL Cholesterol 21.0 MG/DL 0-28 08/17/2016 2:29am 08/17/2016 3:30am Cholesterol/HDL Ratio 5.7 RATIO H 0-5.0 08/17/2016 2:29am 08/17/2016 3: 30am Troponin I < 0.012 ng/ml 0-0.12 08/17/2016 8:44am 08/17/2016 9:24am Troponin values with a difference of 55% increase from orginal troponin value represent a true biological DELTA value. (%increase Calc=Orginal Troponin value, divided by subsequent Troponin value, multiplied by 100) EJ-Xtc-I-Type Natriuretic Peptide 61 PG/ML 0-175 08/16/2016 2:43pm 06/2016 3:10pm Rule in cut points: <50 years old=450; 50-75 years old=900; >75 years old=1800; When utilizing ProBNP rule-in cut points, adjustment for impaired renal function is typically not required. Magnesium Level 1.9 MG/DL 1.6-2.3 08/16/2016 2:43pm 08/16/2016 2:57pm Thyroid Stimulating Hormone (TSH) 1.39 MIU/L 0.47-4.68 08/16/2016 2: 43pm 08/16/2016 3:28pm Erythrocyte Sedimentation Rate 7 mm/h 0-15 08/16/2016 8:27pm 2016 4:20pm Sedimentation Rate performed at [facility] Reference Lab, [address] [place] [address] [employer] Aaron Seth DO Name: BASILIO HUNT Unit #: [id number] : 1975 Sex: M Admit Date: Loc / Svc: ED Discharge Date: DIAGNOSTIC IMAGING REPORT Report #: [id number] [facility] ELVIA Scanlon Indication: ITS.REASON: chest pain PROCEDURE: CHEST 1 VIEW: Encounter: Initial Comparison: None FINDINGS: The lungs are clear. There is no abnormal airspace opacity, pleural effusion or pneumothorax identified. The heart size, pulmonary vasculature and mediastinum are within normal limits. No significant skeletal abnormality is seen. IMPRESSION: No acute cardiopulmonary abnormality. . Procedures Procedure Status Date Provider(s) Extremity study Completed 05/29/16 Ther/proph/diag inj sc/im Completed 05/29/16 Emergency dept visit Completed 05/29/16 [id number]"INJECTION, ENOXAPARIN SODIUM, 10 MG" Completed 05/29/16 Extremity study Completed 05/31/16 Ct angiography chest Completed 05/30/16 Comprehen metabolic panel Completed 05/30/16 Assay of lactic acid Completed 05/30/16 Complete cbc w/auto diff wbc Completed 05/30/16 Hydrate iv infusion add-on Completed 05/30/16 Ther/proph/diag inj iv push Completed 05/30/16 Tx/pro/dx inj new drug addon Completed 05/30/16 Tx/pro/dx inj new drug addon Completed 05/30/16 Emergency dept visit Completed 02/14/17 [id number]"INJECTION, DIPHENHYDRAMINE HCL, UP TO 50 MG" Completed 05/30/16"INJECTION, KETOROLAC TROMETHAMINE, PER 15 MG" Completed 05/30/16"INJECTION, METHYLPREDNISOLONE SODIUM SUCCINATE, UP TO Completed "INFUSION, NORMAL SALINE SOLUTION , 1000 CC" Completed 05/30/16"INFUSION, NORMAL SALINE SOLUTION , 250 CC" Completed 05/30/16"INFUSION, NORMAL SALINE SOLUTION , 250 CC" Completed 05/30/16"LOW OSMOLAR CONTRAST MATERIAL, 300-399 MG/ML IODINE C Completed "LOW OSMOLAR CONTRAST MATERIAL, 300-399 MG/ML IODINE C Completed Encounters Encounter Location Arrival/Admit Date Discharge/Depart Date Attending Provider Discharged Inpatient (obs) [facility] 08/16/16 4:02pm 08/17/16 5: 25pm ALEXYS ALSTON MD Registered Clinic [facility] 05/31/16 6:42am BRANDAN MCKEON APRN Departed Emergency Room [facility] 05/30/16 6:46pm 05/30/16 10: 28pm CAROLE JUNE MD Departed Emergency Room [facility] 05/30/16 5:34pm 05/30/16 6: 32pm JOSR BALBUENA APRN Departed Emergency Room [facility] 05/29/16 7:15am 05/29/16 9: 40am LORRAINE SALINAS MD
[2016-08-18] MEDS ORDERED: NICOTINE PATCH REMOVAL TD SCH (09:00)
--- NOTE | 2016-08-18 13:03 | ECHOF ---
DATE 08/17/2016 INDICATION Chest pain, heart murmur. TECHNICAL QUALITY: Technically good 2D, M-mode and Doppler echocardiographic images were submitted for interpretation. FINDINGS 1. CARDIAC CHAMBERS. All cardiac chamber measurements are normal. Aortic root diameter is normal. RV size and contractility appear normal. 2. LV FUNCTION. Wall thickness is normal. Wall motion analysis is normal. Systolic function is normal. EF of 60%. Diastolic function is normal. 3. VALVES. Aortic, mitral, tricuspid and pulmonic valves structure and motion appear normal with normal valve excursion. 4. DOPPLER. Doppler shows very mild mitral regurgitation and trace tricuspid regurgitation and pulmonic insufficiency, none of hemodynamic significance. 5. No evidence of pericardial effusion, intracardiac masses or demonstrable shunts. IMPRESSION Unremarkable echocardiogram. MTDD
--- NOTE | 2016-08-18 13:40 | CVPROF ---
DATE 08/17/2016 PROCEDURE PERFORMED Transradial left heart catheterization LV gram Coronary angiogram INDICATIONS Chest pain consistent with unstable angina. Patient has significant risk factors with personal smoking history and positive family history for premature CAD. INFORMED CONSENT He was counseled on the indications, alternatives, risks and benefits of heart catheterization and he agreed to proceed. PREMEDICATION IV Versed total of 4 mg, fentanyl 50 mcg, Benadryl 50 mg, Solu-Medrol 125 mg IV. NARRATIVE OF PROCEDURE After the risks and benefits of the procedure were fully discussed with the patient in detail, he agreed to proceed. He was brought to the cardiac cath laboratory, received IV sedation. I went ahead and injected lidocaine 1% about 1.5 cc in the right wrist. I cannulated the right radial artery without difficulty using modified Seldinger percutaneous technique. A #6 [place] Sheath was introduced in place, sidearm was flushed, aspirated and injected the arterial drug combo per protocol and then used the trap catheter to perform the coronary angiogram, left heart catheterization and LV gram. Procedure was well tolerated and there were no immediate complications. FINDINGS 1. HEMODYNAMICS: LV EDP was 6 mmHg. No pressure gradient across the aortic valve or intracavitary was present. 2. CORONARY ANGIOGRAM: Left main coronary artery is large and normal. LAD is large, gives origin to a diagonal branch. It is normal. Ramus branch is large and normal. The left circumflex artery is large and nondominant vessel. It gives origin to multiple obtuse marginal branches. It is angiographically normal. No significant coronary artery disease is present. The right coronary artery is a large dominant vessel. It gives origin to RPDA and RPLB branches. It is angiographically normal. LV gram shows normal wall motion, normal systolic function. Ejection fraction of 60%. IMPRESSION 1. Unremarkable coronary angiogram without any angiographic evidence of obstructive disease. 2. Normal LV systolic function. 3. Normal filling pressures. MTDD
--- NOTE | 2016-08-18 16:22 | DSF ---
HISTORY Mr. Hunt is a 40-year-old male who presented with recent onset of chest pressure and tightness, worse with activity. There was a stabbing component. He is a smoker. He reports a positive family history of premature coronary artery disease. His pain went away after three nitroglycerins in the ER, as he was transferred to the ER from my office. He received aspirin and admitted as an outpatient. There was a soft heart murmur heard and echocardiogram was unremarkable fortunately. He ruled out for [place]. Due to his typical presentation and his risk factors we advised him on the role of heart catheterization and he agreed to proceed. He understood the risks and benefits. This took place on August 17 and showed no obstructive coronary artery disease, normal LV function. Patient remained chest pain-free. He was ambulatory post heart catheterization and remained asymptomatic. He was planned for discharge to home in good condition. Lipid profile came back with elevated LDL cholesterol, low HDL. He was counseled on a heart-healthy diet. Due to his family history and smoking, I also recommended a statin drug. A prescription was electronically transmitted (Lipitor 20 mg q.h.s. - possible side effects were discussed). Patient was also counseled on smoking cessation. IMPRESSION 1. Noncardiac chest pain, possibly due to anxiety and stress versus atypical GI. 2. Dyslipidemia. 3. Tobacco addiction. 4. Positive family history. DISCHARGE INSTRUCTIONS 1. Return to work on Sunday. Post-transradial restrictions were provided, lifting less than 1 pound for one week in the right hand. 2. Followup visit with PCP in one week. 3. Appointment to see me in two to four weeks. DISCHARGE MEDICATIONS Please see medication reconciliation form. His home medications were resumed including Xarelto for history of DVT and Lipitor. SPECIAL INSTRUCTIONS Smoking cessation counseling. Post heart catheterization restrictions. YASMIN
--- NOTE | 2016-08-22 10:48 | NUR ---
ATTEMPTED [facility] FOLLOW UP PHONE CALL #1, NO VOICE MESSAGE.
--- NOTE | 2016-08-24 13:34 | NUR ---
ATTEMPTED [facility] HOSP[facility] FOLLOW UP PHONE CALL #2, NO ANSWER, NO VOICE MESSAGE.
== END 2016-08-17 17:25 | disposition home or self-care (01) ==
LOC: ED 14:30 → EDHOLD 16:02 → UNDOADMOB 16:02 → SRG 16:02 → CATH 16:02 → EDHOLD 16:20 → SRG 16:20 → UNDODISOB 08-17 17:25 → CATH 08-17 17:25
PROVIDERS: ATTEND Internal Medicine Cardiovascular Disease
DX: R07.89 Other chest pain (principal); F41.1 Generalized anxiety disorder; F43.10 Post-traumatic stress disorder, unspecified; E78.5 Hyperlipidemia, unspecified; F17.210 Nicotine dependence, cigarettes, uncomplicated; Z82.49 Family history of ischemic heart disease and other diseases of the circulatory system; R01.1 Cardiac murmur, unspecified; I10 Essential (primary) hypertension; Z86.718 Personal history of other venous thrombosis and embolism; J44.9 Chronic obstructive pulmonary disease, unspecified; G43.909 Migraine, unspecified, not intractable, without status migrainosus; R63.4 Abnormal weight loss; Z68.1 Body mass index [BMI] 19.9 or less, adult; R45.0 Nervousness; K59.00 Constipation, unspecified; F19.21 Other psychoactive substance dependence, in remission; Z79.899 Other long term (current) drug therapy
CPT/HCPCS: 36000; 36415; 71010; 80053; 80061; 83735; 83880; 84443; 84484; 85025; 85379; 85652; 93005; 93306; 93458; 96360; 96361; 96372; 99218; 99284; 99406; C1893; J1200; J1644; J2250; J2930; J3010; J3490; J7030; J7512; Q9967